=== PATIENT | male | born 1995 | race Caucasian/White ===

== ENCOUNTER 2018-06-04 22:30 | Emergency (ER) | payer OTHER ==
[~2018-06-04] VITALS: Ht 195.6 cm; Wt 97.7 kg
[2018-06-04 22:36] VITALS: TEMP 99.5
[2018-06-04 23:32] VITALS: BP 132/84
[2018-06-04 23:35] VITALS: PULSE 120
== END 2018-06-04 23:38 | disposition home or self-care (01) ==
LOC: COL.ER 22:30
DX: S01.01XA Laceration without foreign body of scalp, initial encounter (principal); W22.8XXA Striking against or struck by other objects, initial encounter; Y92.009 Unspecified place in unspecified non-institutional (private) residence as the place of occurrence of the external cause